=== PATIENT | male | born 1965 | race Caucasian/White ===

== ENCOUNTER 2020-02-23 10:11 | Emergency (ER) | payer MEDICAID ==
[~2020-02-23] VITALS: Ht 180.3 cm; Wt 77.3 kg
[2020-02-23 10:18] VITALS: BP 121/84
[2020-02-23] MEDS ORDERED: LORazepam 1 MG tablet PO ONE (10:25)
[2020-02-23] MEDS ORDERED: phenytoin sod ER 100mg capsule PO ONE (10:25)
[2020-02-23] MEDS ORDERED: ONDA4TAB6 PO (10:33)
== END 2020-02-23 10:50 | disposition home or self-care (01) ==
LOC: ER 10:11
DX: R56.9 Unspecified convulsions (principal); R11.2 Nausea with vomiting, unspecified; R10.84 Generalized abdominal pain; Z79.899 Other long term (current) drug therapy
CPT/HCPCS: 99283